=== PATIENT | male | born 1975 | race Caucasian/White ===

== ENCOUNTER 2017-05-24 17:22 | Emergency (ER) | payer SELFPAY ==
[2017-05-24] MEDS ORDERED: PROCHLORPERAZINE MALEATE 10 MG TABLET PO ONE (17:38)
[2017-05-24] MEDS ORDERED: DIPHENHYDRAMINE HCL 25 MG CAPSULE PO ONE (17:38)
[2017-05-24] MEDS ORDERED: CLONIDINE HCL 0.2 MG TABLET PO ONE (17:39)
[2017-05-24] MEDS ORDERED: HYDROCODONE/ACETAMINOPHEN 5-325 MG TABLET PO ONE (17:39)
--- NOTE | 2017-05-24 17:46 | ER Document Report ---
ED Medical Screen (RME) - General Stated Complaint: DIZZY,HEADACHE,NAUSEA Time Seen by Provider: 05/24/17 17:32 Notes: This 41-year-old male is sent over from urgent care for elevated blood pressure and headache. He does have a history of frequent headaches, he states he usually soaks his feet in hot water, put a bag ice on his forehead, and gets in bed and it will go away. Several years ago while living outside of [facility] he was evaluated for the headaches and found to have elevated blood pressure. He was put on Lisinopril 5 mg daily which he ran out of 3 years ago. He checks his blood pressure with a wrist cuff occasionally and reports that generally runs about 120-130/90. Note from the office today reported pressure 185/143. The headache is mostly behind his forehead and retro-orbital. He does report that lights and sound tend to make the head feel worse. He has never been diagnosed with migraine in the past, but he really does not seek medical attention for his headaches. Quick exam shows no scalp muscle tenderness, no sinus percussion tenderness and no posterior cervical muscle tenderness. His history and exam suggests this may well be a migraine headache with long- standing high blood pressure. I have greeted and performed a rapid initial assessment of this patient. A comprehensive ED assessment and evaluation of the patient, analysis of test results and completion of the medical decision making process will be conducted by additional ED providers. TRAVEL OUTSIDE OF THE [place] IN LAST 30 DAYS: No - Related Data Allergies/Adverse Reactions: No Known Allergies Allergy (Unverified 05/24/17 17:29) Home Medications: Current Home Medications No Home Medications 05/24/17 [History] Past Medical History - Social History Chew tobacco use (# tins/day): No Frequency of alcohol use: Rare Drug Abuse: None - Past Medical History Cardiac Medical History: Reports: Hx Hypertension Renal/ Medical History: Denies: Hx Peritoneal Dialysis Surgical Hx: Negative - Immunizations Hx Diphtheria, Pertussis, Tetanus Vaccination: No Physical Exam - Vital signs Vitals: Temp Pulse Resp BP Pulse Ox 97.7 F 67 18 175/120 H 98 05/24/17 17:30 05/24/17 17:30 05/24/17 17:30 05/24/17 17:30 05/24/17 17:30 Course - Vital Signs Vital signs: Temp Pulse Resp BP Pulse Ox 97.7 F 67 18 175/120 H 98 05/24/17 17:30 05/24/17 17:30 05/24/17 17:30 05/24/17 17:30 05/24/17 17:30
--- NOTE | 2017-05-24 18:35 | ER Document Report ---
ED Headache - General Chief Complaint: Headache Stated Complaint: DIZZY,HEADACHE,NAUSEA Time Seen by Provider: 05/24/17 17:32 Information source: Patient Notes: Patient is a 41-year-old male with past medical history including headaches and high blood pressure who states he has not taken his blood pressure medications for the last 4 years because he thought "I could just beat it". Patient states he had a slow development of a frontal headache earlier today with some nausea. He denies any blurry vision, chest pain, weakness or numbness, or calf pain or leg swelling. Patient states he feels like his normal pain of his headaches. He denies any posterior neck pain or stiffness. TRAVEL OUTSIDE OF THE [place] IN LAST 30 DAYS: No - HPI Patient complains to provider of: Headache Onset: Other - See above Onset was: Gradual Timing: Better Quality of pain: Other - See above Severity: Mild Pain Level: 1 Associated symptoms: Other - See above Similar symptoms previously: No Recently seen / treated by doctor: No - Related Data Allergies/Adverse Reactions: No Known Allergies Allergy (Unverified 05/24/17 17:29) Past Medical History - General Information source: Patient - Social History Smoking Status: Never Smoker Cigarette use (# per day): No Chew tobacco use (# tins/day): No Frequency of alcohol use: Rare Drug Abuse: None Family History: Reviewed & Not Pertinent - Past Medical History Cardiac Medical History: Reports: Hx Hypertension Renal/ Medical History: Denies: Hx Peritoneal Dialysis Surgical Hx: Negative - Immunizations Hx Diphtheria, Pertussis, Tetanus Vaccination: No Review of Systems - Review of Systems Constitutional: denies: Fever EENT: denies: Eye discharge, Nose discharge Cardiovascular: denies: Chest pain, Palpitations, Heart racing, Syncope Respiratory: denies: Short of breath Gastrointestinal: denies: Vomiting Genitourinary: denies: Dysuria Musculoskeletal: denies: Leg swelling Skin: Other - no hives. denies: Rash Neurological/Psychological: Other - no slurred speech -: Yes All other systems reviewed and negative Physical Exam - Vital signs Vitals: Temp Pulse Resp BP Pulse Ox 97.7 F 67 18 175/120 H 98 05/24/17 17:30 05/24/17 17:30 05/24/17 17:30 05/24/17 17:30 05/24/17 17:30 - Notes Notes: Reviewed vital signs and nursing note as charted by RN. CONSTITUTIONAL: Alert and oriented and responds appropriately to questions. Well -appearing; well-nourished HEAD: Normocephalic; atraumatic EYES: PERRL ENT: Normal nose; no rhinorrhea; moist mucous membranes; pharynx without lesions noted NECK: Supple without meningismus; non-tender; no cervical lymphadenopathy, no masses CARD: Regular rate and rhythm; no murmurs RESP: Normal chest excursion without splinting or tachypnea; breath sounds clear and equal bilaterally ABD/GI: Normal bowel sounds; non-distended; soft, non-tender BACK: The back appears normal and is non-tender to palpation, there is no CVA tenderness EXT: No edema SKIN: Normal color for age and race; warm; dry; good turgor; capillary refill < 2 seconds; no acute lesions noted NEURO: CN 2-12 intact. Pt has 5/5 bilateral upper and lower extremity strength with sensation intact to light touch. Pt has normal bilateral finger to nose. PSYCH: The patient's mood and manner are appropriate. Grooming and personal hygiene are appropriate. Course - Re-evaluation Re-evalutation: 05/24/17 18:34 Given the history and physical examination with the slow development of a frontal headache with no focal neurological deficits or chest pain, and a patient that is not taking his blood pressure medications for 4 years, I will order basic labs, CT scan of the head, and most likely restart the patient's blood pressure medications. Given the slow onset of the headache, no blurry vision, click and reactive pupils, soft globes bilaterally, no temporal erythema or tenderness, no neck pain or stiffness, history of headaches, blood pressure is recorded, I do believe subarachnoid hemorrhage, acute bacterial meningitis, temporal arteritis, and acute angle-closure glaucoma to be extremely unlikely. 05/24/17 19:36 CT scan of the head is unremarkable. Chemistry as recorded. I will start the patient on a low-dose of lisinopril which the patient was taking previously, and provide outpatient follow-up. Strict return precautions have been explained. Patient states his headache is improved and he still has no focal neurological deficits. - Vital Signs Vital signs: Temp Pulse Resp BP Pulse Ox 97.7 F 67 18 184/92 H 98 05/24/17 17:30 05/24/17 17:30 05/24/17 17:30 05/24/17 18:10 05/24/17 17:30 - Laboratory Result Diagrams: 05/24/17 18:51 05/24/17 18:51 Discharge - Discharge Clinical Impression: Elevated blood pressure reading Headache Qualifiers: Headache type: unspecified Headache chronicity pattern: acute headache Intractability: not intractable Qualified Code(s): R51 - Headache Condition: Good Disposition: HOME, SELF-CARE Additional Instructions: Come back immediately for any return of headaches, neck pain or stiffness, fevers, blurry vision, chest pain, weakness or numbness, or any other acute problems. Please follow-up as an outpatient as we have discussed. Please start taking your lisinopril as prescribed. It is important that you have your blood chemistry checked in the next 1-2 weeks given the new medication. Please follow-up as an outpatient clinic to have this performed or return to the emergency department. Prescriptions: Lisinopril/Hydrochlorothiazide [Lisinopril-Hctz 10-12.5 mg Tab] 1 each PO DAILY #30 tablet
[2017-05-24 19:01] LABS: ABSOLUTE BASOPHILS # (AUTO) 0.1 10^3/uL (0.0-0.2); ABSOLUTE EOSINOPHILS # (AUTO) 0.2 10^3/uL (0.0-0.6); ABSOLUTE MONOCYTES (AUTO) 0.7 10^3/uL (0.1-1.4); ABSOLUTE NEUT (AUTO) 4.2 10^3/uL (1.7-8.2); BASOPHILS % (AUTO) 0.9 % (0-2); EOSINOPHILS % (AUTO) 2.7 % (0-6); HEMATOCRIT 46.3 % (37.9-51.0); HEMOGLOBIN 15.7 g/dL (13.5-17.0); HGB HCT DIFFERENCE 0.8; LYMPHOCYTES % (AUTO) 28.4 % (13-45); MEAN CORPUSCULAR HEMOGLOBIN 29.1 pg (27.0-33.4); MEAN CORPUSCULAR VOLUME 86 fl (80-97); MONOCYTES % (AUTO) 9.1 % (3-13); RED BLOOD COUNT 5.41 10^6/uL (4.35-5.55); SEGMENTED NEUTROPHILS % (AUTO) 58.9 % (42-78); WHITE BLOOD COUNT 7.2 10^3/uL (4.0-10.5)
[2017-05-24 19:18] LABS: ANION GAP 12 (5-19); BLOOD UREA NITROGEN 17 mg/dL (7-20); CALCIUM 9.3 mg/dL (8.4-10.2); CARBON DIOXIDE 26 mmol/L (22-30); CHLORIDE 103 mmol/L (98-107); CREATININE RESULT 0.79 mg/dL (0.52-1.25); GLUCOSE 86 mg/dL (75-110); POTASSIUM 3.9 mmol/L (3.6-5.0); SODIUM 140.7 mmol/L (137-145)
--- NOTE | 2017-05-24 19:26 | RADIOLOGY REPORT (SQ) ---
EXAM DESCRIPTION: CT HEAD WITHOUT COMPLETED DATE/TIME: 05/24/2017 6:57 pm REASON FOR STUDY: 23, headache with elevated bp COMPARISON: None. TECHNIQUE: Axial images acquired through the brain without intravenous contrast. Images reviewed wi th bone, brain and subdural windows. Images stored on PACS. All CT scanners at this facility use dose modulation, iterative reconstruction, and/or weight based d osing when appropriate to reduce radiation dose to as low as reasonably achievable (ALARA). [facility]: Dose Right [facility]: CareDose [facility]: Dose Right [facility]: Teradose 4D [facility]: [employer] RADIATION DOSE: Up-to-date CT equipment and radiation dose reduction techniques were employed. CTDIv ol: 64.6 mGy. DLP: 1163 mGy-cm. mGy. LIMITATIONS: None. FINDINGS: VENTRICLES: Normal size and contour. CEREBRUM: No masses. No hemorrhage. No midline shift. No evidence for acute infarction. Normal gra y/white matter differentiation. No areas of low density in the white matter. CEREBELLUM: No masses. No hemorrhage. No alteration of density. No evidence for acute infarction. EXTRAAXIAL SPACES: No fluid collections. No masses. ORBITS AND GLOBE: No intra- or extraconal masses. Normal contour of globe without masses. CALVARIUM: No fracture. PARANASAL SINUSES: No fluid or mucosal thickening. SOFT TISSUES: No mass or hematoma. OTHER: No other significant finding. IMPRESSION: NORMAL BRAIN CT WITHOUT CONTRAST. COMMENT: Quality ID # [id number]: Final reports with documentation of one or more dose reduction techniques (e.g., Automated exposure control, adjustment of the mA and/or kV according to patient size, use of iterative reconstruction technique) TECHNICAL DOCUMENTATION: JOB ID: [id number]- All Rights Reserved
[2017-05-24 19:47] VITALS: BP 139/103
== END 2017-05-24 19:46 | disposition home or self-care (01) ==
LOC: ER 17:22
DX: R51 Headache (principal); R42 Dizziness and giddiness; R11.0 Nausea; I10 Essential (primary) hypertension
CPT/HCPCS: 99284; 36415; 85025; 80048; 70450; S0183